=== PATIENT | female | born 1965 | race African-American/Black ===

== ENCOUNTER 2016-11-02 21:20 | Emergency (ER) | payer SELFPAY ==
[~2016-11-02] VITALS: Ht 167.6 cm; Wt 94.0 kg
[2016-11-03 04:08] VITALS: BP 140/92
[2016-11-03] MEDS ORDERED: BACITRACIN ZINC OINT UDPKT TOP ONE (04:30)
== END 2016-11-03 07:46 | disposition home or self-care (01) ==
LOC: ER 23:08
DX: L03.031 Cellulitis of right toe (principal); R03.0 Elevated blood-pressure reading, without diagnosis of hypertension; Z88.1 Allergy status to other antibiotic agents; Z88.2 Allergy status to sulfonamides
CPT/HCPCS: 99283; Z7610